=== PATIENT | male | born 1995 | race Caucasian/White ===

== ENCOUNTER 2018-08-21 12:24 | Emergency (ER) | payer SELFPAY ==
[~2018-08-21] VITALS: Ht 149.9 cm; Wt 48.0 kg
[2018-08-21 12:29] VITALS: BP 133/83; PULSE 65; RESP 19; Ht 149.9 cm; Wt 48.0 kg
[2018-08-21] MEDS ORDERED: LIDOCAINE 1% (MPF) 5 ML VIAL INJ ONE (13:00)
--- NOTE | 2018-08-21 13:02 | ERD ---
ER Documentation Chief Complaint Chief Complaint RIGHTN HAND LACERATION HPI 23-year-old male presenting with laceration to left wrist. Patient was at work and a piece of wire cut his wrist. He is right-hand dominant. He states he has no pain with movement of his digits and does not feel weakness. Is up-to-date o n vaccinations. Denies other medical problems. NKDA. Surgical history denies. Social history denies ROS All systems reviewed and are negative except as per history of present illness. PMhx/Soc Hx Alcohol Use: No Hx Substance Use: No Hx Tobacco Use: No Smoking Status: Never smoker FmHx Family History: No diabetes, No coronary disease, No other Physical Exam Vitals Vital Signs Date Temp Pulse Resp B/P (MAP) Pulse Ox O2 O2 Flow FiO2 Time Delivery Rate 08/21/18 98.0 65 19 133/83 100 12:29 (100) Physical Exam GENERAL: The patient is well-appearing, well-nourished, in no acute distress CHEST: Clear to auscultation bilaterally. There are no rales, wheezes or rhonchi. HEART: Regular rate and rhythm. No murmurs, clicks, rubs or gallops. EXTREMITIES: Equal pulses bilaterally. There is no peripheral clubbing, cyanosis or edema. No focal swelling or erythema. Full range of motion. Grossly neurovascularly intact. NEUROLOGIC: Motor strength in all 4 extremities with 5 out of 5 strength. Sensation grossly intact. SKIN: 1 cm linear laceration noted to the lateral aspect of the left wrist. No active bleeding. No foreign bodies. Results 24 hrs Current Medications Medications Dose Sig/Matthew Start Time Status Last (Trade) Ordered Route PRN Stop Time Admin Dose Reason Admin Lidocaine 5 ml ONCE ONCE 08/21/18 (Xylocaine INJ 13:00 1% (Mpf)) 08/21/18 13:01 Procedures/MDM Laceration Repair by me: Anesthesia: 1% lidocaine locally Location: left lateral wrist Tendon/Joint/Nerves: No injury Foreign body: None detected after copious irrigation and exploration Technique: Simple Interrupted Sutures Complexity: No subcutaneous sutures/mucosal repair/edge excision Post Closure Length: 1 cm Patient's bleeding was easily controlled in the department and there is no indication of anemia. No evidence of compartment syndrome, neurologic injury, vascular injury, open joint, tendon laceration, or foreign body. Patient is appropriate for outpatient follow up. 48 hour wound check. Scar minimization instructions given. MDM: 23-year-old male presenting with laceration. I will suspicion for tendon or ligament injury. A low suspicion for active bleeding or vascular deficit. Patient did not have active bleeding noted on exam patient is able to move all digits without difficulty. Patient is discharged with stricter precautions and told to follow-up with primary care within 1-2 days for close evaluation. Patient is told if symptoms change or worsen to return immediately to the ER. All questions answered at discharge Departure Diagnosis: Primary Impression: Laceration Condition: Stable Patient Instructions: Laceration, Hand Referrals: [facility] YOU HAVE RECEIVED A MEDICAL SCREENING EXAM AND THE RESULTS INDICATE THAT YOU DO NOT HAVE A CONDITION THAT REQUIRES URGENT TREATMENT IN THE EMERGENCY DEPARTMENT. FURTHER EVALUATION AND TREATMENT OF YOUR CONDITION CAN WAIT UNTIL YOU ARE SEEN IN YOUR DOCTORS OFFICE WITHIN THE NEXT 1-2 DAYS. IT IS YOUR RESPONSIBILITY TO MAKE AN APPOINTMENT FOR FOLOW-UP CARE. IF YOU HAVE A PRIMARY DOCTOR --you should call your primary doctor and schedule an appointment IF YOU DO NOT HAVE A PRIMARY DOCTOR YOU CAN CALL OUR PHYSICIAN REFERRAL HOTLINE AT IF YOU CAN NOT AFFORD TO SEE A PHYSICIAN YOU CAN CHOSE FROM THE FOLLOWING [facility] [address] [facility]. [facility] [address] [facility] [facility] [address] [facility] [facility] [address] [facility]. [facility] [address] [facility]. [facility]. [address] Additional Instructions: FOLLOW UP WITH YOUR PRIMARY CARE PHYSICIAN TOMORROW.Return to this facility if you are not improving as expected. JNOY CISSE PA-C Aug 21, 2018 13:02
== END 2018-08-21 13:02 | disposition home or self-care (01) ==
LOC: FTE 12:24
DX: S61.512A Laceration without foreign body of left wrist, initial encounter (principal); W26.8XXA Contact with other sharp object(s), not elsewhere classified, initial encounter; Y92.89 Other specified places as the place of occurrence of the external cause